=== PATIENT | female | born 1990 | race Caucasian/White ===

== ENCOUNTER 2020-04-26 00:50 | Inpatient (IN) | payer MEDICAID ==
[~2020-04-26] VITALS: Ht 157.5 cm; Wt 63.8 kg
[2020-04-26] MEDS ORDERED: DOCUSATE 100 MG CAPSULE PO PRN (01:00)
[2020-04-26] MEDS ORDERED: BISACODYL 10 MG SUPP PR PRN (01:00)
[2020-04-26] MEDS ORDERED: POLYETHYLENE GLYCOL 17 GM PACKET PO PRN (01:00)
[2020-04-26] MEDS ORDERED: ONDANSETRON ODT 4 MG PO PRN (01:00)
[2020-04-26] MEDS ORDERED: ACETAMINOPHEN 325 MG TABLET PO PRN (01:00)
[2020-04-26] MEDS ORDERED: OLANZAPINE 10 MG INJ IM ONE (01:30)
[2020-04-26 02:30] VITALS: BP 125/80
[2020-04-26] MEDS ORDERED: LORazepam 1MG TABLET PO ONE ×2 (03:30→08:12)
[2020-04-26] MEDS ORDERED: LORazepam 1MG TABLET ONE (03:36)
[2020-04-26 07:34] VITALS: BP 118/79
[2020-04-26] MEDS ORDERED: HALOPERIDOL 5 MG/ML IM STA (07:57)
[2020-04-26] MEDS ORDERED: LORazepam 2 MG/ML, 1ML IM STA (07:57)
[2020-04-26] MEDS ORDERED: DIPHENHYDRAMINE 50 MG/ML, 1ML IM STA (07:57)
[2020-04-26] MEDS ORDERED: DIPHENHYDRAMINE 50 MG/ML, 1ML ONE (07:59)
[2020-04-26] MEDS ORDERED: LORazepam 2 MG/ML, 1ML ONE (07:59)
[2020-04-26] MEDS ORDERED: HALOPERIDOL 5 MG/ML ONE (07:59)
[2020-04-26] MEDS ORDERED: DIPHENHYDRAMINE 50 MG CAPSULE ONE (08:09)
[2020-04-26] MEDS ORDERED: HALOPERIDOL 5 MG TABLET ONE ×2 (08:09→08:22)
[2020-04-26] MEDS ORDERED: HALOPERIDOL 5 MG TABLET PO STA (08:12)
[2020-04-26] MEDS ORDERED: DIPHENHYDRAMINE 50 MG CAPSULE PO ONE (08:12)
[2020-04-26 08:46] LABS: CHOL/HDL RATIO 3.8; LDL/HDL RATIO 2.2 (0.5-3.0)
[2020-04-26] MEDS ORDERED: FLUO20CA19 PO (11:40)
[2020-04-26] MEDS ORDERED: DIAZ5TAB PO (11:40)
[2020-04-26] MEDS ORDERED: GABA100C PO (11:40)
[2020-04-26] MEDS ORDERED: HYDR25CA PO (11:40)
[2020-04-26] MEDS ORDERED: GABAPENTIN 100 MG CAPSULE PO ONE (12:30)
[2020-04-26] MEDS ORDERED: FLUOXETINE HCL 20 MG CAPSULE PO SCH (12:30)
[2020-04-26] MEDS: DIAZEPAM 5 MG TABLET PO SCH ×4 (12:33→20:36)
[2020-04-26 13:05] VITALS: BP 125/80
[2020-04-26] MEDS: GABAPENTIN 100 MG CAPSULE PO SCH ×3 (16:28→20:36)
[2020-04-26 19:31] VITALS: BP 117/70
[2020-04-26] MEDS: TRAZODONE 50MG TABLET PO PRN (20:43)
[2020-04-27 07:38] VITALS: BP 107/73
[2020-04-27] MEDS: GABAPENTIN 100 MG CAPSULE PO SCH ×3 (08:37→19:43)
[2020-04-27] MEDS: DIAZEPAM 5 MG TABLET PO SCH (08:38)
[2020-04-27] MEDS: FLUOXETINE 10 MG CAP PO SCH (08:38)
[2020-04-27] MEDS ORDERED: DIAZEPAM 5 MG TABLET PO PRN (15:00)
[2020-04-27] MEDS: TRAZODONE 50MG TABLET PO PRN (19:43)
[2020-04-27 20:00] VITALS: BP 106/75
[2020-04-28 07:29] VITALS: BP 102/77
[2020-04-28] MEDS: GABAPENTIN 100 MG CAPSULE PO SCH (08:36)
[2020-04-28] MEDS: FLUOXETINE 10 MG CAP PO SCH (08:37)
== END 2020-04-28 09:25 | disposition home or self-care (01) | DRG 885 ==
LOC: 3E 00:50
PROVIDERS: ADMIT Psychiatry & Neurology Psychosomatic Medicine; ATTEND Psychiatry & Neurology Psychosomatic Medicine
DX: F33.2 Major depressive disorder, recurrent severe without psychotic features (principal); F12.10 Cannabis abuse, uncomplicated; F17.200 Nicotine dependence, unspecified, uncomplicated; F43.10 Post-traumatic stress disorder, unspecified; F60.3 Borderline personality disorder; Z91.5 Personal history of self-harm; Z91.018 Allergy to other foods; Z88.8 Allergy status to other drugs, medicaments and biological substances
CPT/HCPCS: 36415; 80061; J1200; J1630; J2060